=== PATIENT | male | born 1945 | race Caucasian/White ===

== ENCOUNTER → 2017-01-07 | Outpatient (CLI) | payer MEDICARE, OTHER ==
[~2017-01-07] MED LIST: AMLO10TA2 PO; AMLO5TAB2 PO; ASPI81TA83 PO; AVAP300T; CARV12.5 PO; COEN100C PO; DARV100T; GABAPOW41; INDAPAMIDE; INVO100T PO; LIPI20TA; LOSA100T37 PO; METF750T PO; METFORMIN HYDROCHLOR; METOPROLOL TARTRATE; OMEGA 3 FISH OIL; POTA20TA2; PRAV1TAB39 PO; TAMS0.4C2 PO; VERELAN; VITA200015 PO; [UNRECOGNIZED DRUG - OTHER]; [UNRECOGNIZED DRUG - OTHER] PO
--- NOTE | 2017-01-07 17:54 | REP ---
LOW DOSE LUNG SCREENING CT: HISTORY: Low dose screening CT of the lungs. COMPARISON: Chest CT 01/06/2010. Only lung windows have been presented for interpretation on this screening low dose CT examination of the chest. In the inferior aspect of the right upper lobe there is a 9 mm sized nodule which is essentially unchanged from the prior exam when the technical differences between the examinations are taken into consideration. Also in the inferior right upper lobe near the fissure to the right middle lobe there is an unchanged 3 mm size nodule. In the medial aspect of the inferior right upper lobe there is a 2 mm size nodule unchanged. In the fissure between the lingula and left upper lobe there is an area of pleural thickening, which measures approximately 7 mm and is unchanged from the prior exam. In the superior lingula, there is a 3 mm sized nodule which is unchanged. There is a 3 mm sized nodule in the left lower lobe which is unchanged. Also in the left lower lobe, lateral basal segment there is a 4 mm sized nodule, unchanged. No new abnormal nodules, masses or opacities have developed. IMPRESSION: Positive CT screening examination of the lungs, however, all nodules have been stable for 7 years and according to the revised [employer] criteria, these nodules are category 2 lesions and annual screening low dose CT examination of the lungs should continue provided the patient's risk factors remain high. Signed by Gerber Loaiza DO 01/08/2017 11:09 A
== END ==
LOC: M RAD 10:59
PROVIDERS: ATTEND Internal Medicine
DX: Z87.891 Personal history of nicotine dependence (principal); R91.8 Other nonspecific abnormal finding of lung field

== ENCOUNTER → 2018-02-11 | Outpatient (REF) | payer MEDICARE, OTHER | LOC: M LAB REF 10:40 | DX: Z01.89 Encounter for other specified special examinations (principal) | CPT/HCPCS: 86803 ==

== ENCOUNTER → 2020-05-01 | Outpatient (CLI) | payer MEDICARE, OTHER ==
[~2020-05-01] MED LIST changes: -AMLO10TA2 PO; +AMLO1TAB24 PO; +AMLO1TAB25 PO; -AMLO5TAB2 PO; -COEN100C PO; +COEN100C4 PO; -LOSA100T37 PO; +LOSA100T5 PO; -METF750T PO; +METF750T36 PO
--- NOTE | 2020-05-05 12:07 | REP ---
CT CHEST WITHOUT CONTRAST: LOW-DOSE SCREENING EXAM HISTORY: Lung cancer screening. COMPARISON: Chest CT studies dated 01/07/2017 and 01/15/2010. CT FINDINGS: There are scattered perifissural and subcentimeter parenchymal noncalcified pulmonary nodules bilaterally. All of these are unchanged from the 01/07/2017 and the more remote prior study. They could be considered benign. No new pulmonary nodule is appreciated. There is some vascular calcification. The study is otherwise unremarkable. IMPRESSION: Lung-RADS Category 1 findings. Repeat screening exam suggested in one year. MTDD
== END ==
LOC: M RAD 07:26
PROVIDERS: ATTEND Internal Medicine
DX: Z12.2 Encounter for screening for malignant neoplasm of respiratory organs (principal); Z87.891 Personal history of nicotine dependence

== ENCOUNTER → 2020-09-16 | Outpatient (CLI) | payer SELFPAY | LOC: M LABSMTC 08:37 | PROVIDERS: ATTEND Pediatrics | DX: Z20.822 Contact with and (suspected) exposure to COVID-19 (principal) ==

== ENCOUNTER → 2021-10-24 | Outpatient (CLI) | payer MEDICARE, OTHER ==
[~2021-10-24] MED LIST changes: +AMLO1TAB25; +EZET10TA21; +FARX1TAB5; +FISH1000 PO; +HYDR12CA; +LOSA100T45; +ONGL1TAB9; +PRAV40TA2; +TAMS1CAP17
== END ==
LOC: M LABSMTC 09:31
PROVIDERS: ATTEND Anesthesiology
DX: Z01.812 Encounter for preprocedural laboratory examination (principal); Z11.52 Encounter for screening for COVID-19

== ENCOUNTER 2021-10-29 12:18 | Day surgery (SDC) | payer MEDICARE, OTHER ==
[~2021-10-29] VITALS: Ht 177.8 cm; Wt 126.5 kg
[~2021-10-29 12:18] MED LIST changes: +NS 1,000 ML IV ONE
[2021-10-29] MEDS ORDERED: LIDOCAINE 2% 100MG/5ML SDV (FOR ANES.) As Ordered ONE (12:50)
[2021-10-29] MEDS ORDERED: propofoL 200 MG/20 ML VIAL As Ordered ONE ×2 (12:50→13:44)
[2021-10-29 14:35] VITALS: BP 135/71
== END 2021-10-29 14:49 | disposition home or self-care (01) ==
LOC: M OPP 12:18
PROVIDERS: ATTEND Internal Medicine Gastroenterology
DX: Z12.11 Encounter for screening for malignant neoplasm of colon (principal); Z86.010 Personal history of colon polyps; C18.9 Malignant neoplasm of colon, unspecified; D12.0 Benign neoplasm of cecum; K57.30 Diverticulosis of large intestine without perforation or abscess without bleeding; K64.8 Other hemorrhoids; Z79.82 Long term (current) use of aspirin; Z79.84 Long term (current) use of oral hypoglycemic drugs; Z79.899 Other long term (current) drug therapy; Z88.5 Allergy status to narcotic agent; Z95.0 Presence of cardiac pacemaker; Z87.891 Personal history of nicotine dependence

== ENCOUNTER → 2021-11-19 | Outpatient (CLI) | payer MEDICARE, OTHER ==
[~2021-11-19] MED LIST changes: -NS 1,000 ML IV ONE
[2021-11-19 11:37] LABS: HEMATOCRIT 46.5 % (42.0-52.0); HEMOGLOBIN 15.7 g/dl (13.5-17.5); MEAN CORPUSCULAR HEMOGLOBIN 29.1 pg (27.0-33.0); MEAN CORPUSCULAR HGB CONC 33.8 g/dl (32.0-36.5); MEAN CORPUSCULAR VOLUME 86.1 fl (80.0-96.0); PLATELET COUNT, AUTOMATED 189 10^3/uL (150-450); WHITE BLOOD COUNT 8.2 10^3/uL (4.0-10.0)
[2021-11-19 11:48] LABS: INR 1.05; PROTHROMBIN TIME 14.1 SECONDS (12.7-14.5)
[2021-11-19 12:05] LABS: ALBUMIN 3.8 GM/DL (3.2-5.2); ALT/SGPT 42 U/L (12-78); BILIRUBIN,TOTAL 1.1 MG/DL (0.2-1.0); BLOOD UREA NITROGEN 15 MG/DL (7-18); CALCIUM LEVEL 9.3 MG/DL (8.8-10.2); CARBON DIOXIDE LEVEL 31 MEQ/L (21-32); CHLORIDE LEVEL 105 MEQ/L (98-107); CREATININE FOR GFR 1.08 MG/DL (0.70-1.30); GLOMERULAR FILTRATION RATE > 60.0 (>42); GLUCOSE, FASTING 130 MG/DL (70-100); SODIUM LEVEL 140 MEQ/L (136-145); TOTAL PROTEIN 7.2 GM/DL (6.4-8.2)
== END ==
LOC: M LAB 10:45
DX: C18.9 Malignant neoplasm of colon, unspecified (principal)

== ENCOUNTER → 2021-11-23 | Outpatient (CLI) | payer MEDICARE, OTHER ==
[~2021-11-23] MED LIST changes: +GASTROGRAFIN SOLUTION 30ML (Q9963) As Ordered ONE; +ISOVUE-370 76% 100ML VIAL As Ordered ONE
== END ==
LOC: M RAD 11:29
DX: C18.9 Malignant neoplasm of colon, unspecified (principal)
CPT/HCPCS: 71260; 74177; Q9963; Q9967

== ENCOUNTER → 2022-04-08 | Outpatient (CLI) | payer MEDICARE, OTHER ==
[~2022-04-08] MED LIST changes: -GASTROGRAFIN SOLUTION 30ML (Q9963) As Ordered ONE; -ISOVUE-370 76% 100ML VIAL As Ordered ONE
== END ==
LOC: M RAD 12:55
PROVIDERS: ATTEND Internal Medicine
DX: M79.605 Pain in left leg (principal)

== ENCOUNTER 2022-10-01 07:53 | Emergency (ER) | payer MEDICARE, OTHER ==
[~2022-10-01] VITALS: Ht 177.8 cm; Wt 105.4 kg
[2022-10-01] MEDS ORDERED: SEMA1PEN2 SQ (08:13)
[2022-10-01] MEDS ORDERED: NS 1,000 ML IV ONE ×2 (08:50→12:20)
[2022-10-01 09:32] LABS: BASO % 0.3 % (0.0-1.0); EOS # 0.1 10^3/uL (0.0-0.5); EOS % 1.5 % (0.0-3.0); HEMATOCRIT 47.4 % (42.0-52.0); HEMOGLOBIN 16.2 g/dl (13.5-17.5); LYMPH # 0.9 10^3/uL (1.5-5.0); LYMPH % 9.4 % (24.0-44.0); MEAN CORPUSCULAR HEMOGLOBIN 29.3 pg (27.0-33.0); MEAN CORPUSCULAR HGB CONC 34.2 g/dl (32.0-36.5); MEAN CORPUSCULAR VOLUME 85.9 fl (80.0-96.0); MONO # 0.7 10^3/uL (0.0-0.8); MONO % 7.5 % (2.0-8.0); NEUTROPHILS # 7.6 10^3/uL (1.5-8.5); NEUTROPHILS % 80.9 % (36.0-66.0); PLATELET COUNT, AUTOMATED 184 10^3/uL (150-450); RED BLOOD COUNT 5.52 10^6/uL (4.30-6.10); WHITE BLOOD COUNT 9.4 10^3/uL (4.0-10.0)
[2022-10-01 10:02] LABS: ALBUMIN 3.9 G/DL (3.2-5.2); ALKALINE PHOSPHATASE 68 U/L (46-116); ALT/SGPT 24 U/L (7.0-40); AST/SGOT 26 U/L (<34); BILIRUBIN,DIRECT 0.6 MG/DL (<0.4); BILIRUBIN,TOTAL 1.6 MG/DL (0.3-1.2); BLOOD UREA NITROGEN 18 MG/DL (9-23); CALCIUM LEVEL 9.5 MG/DL (8.3-10.6); CARBON DIOXIDE LEVEL 23 MMOL/L (20-31); CHLORIDE LEVEL 105 MMOL/L (98-107); CREATININE FOR GFR 1.01 MG/DL (0.70-1.30); GLOMERULAR FILTRATION RATE > 60.0 (>42); GLUCOSE, FASTING 112 MG/DL (74-106); POTASSIUM SERUM 3.8 MMOL/L (3.5-5.1); SODIUM LEVEL 138 MMOL/L (136-145); TOTAL PROTEIN 6.8 G/DL (5.7-8.2)
[2022-10-01 10:04] LABS: THYROID STIMULATING HORMONE 3.171 uIU/ML (0.55-4.78)
[2022-10-01 13:46] VITALS: BP 145/75
== END 2022-10-01 14:15 | disposition home or self-care (01) ==
LOC: M ED 07:53
DX: R55 Syncope and collapse (principal); R50.9 Fever, unspecified; R94.31 Abnormal electrocardiogram [ECG] [EKG]; E11.9 Type 2 diabetes mellitus without complications; I10 Essential (primary) hypertension; Z79.82 Long term (current) use of aspirin; Z87.891 Personal history of nicotine dependence; Z88.8 Allergy status to other drugs, medicaments and biological substances; Z79.84 Long term (current) use of oral hypoglycemic drugs

== ENCOUNTER 2023-07-09 12:55 | Day surgery (SDC) | payer MEDICARE, OTHER ==
[~2023-07-09] VITALS: Ht 177.8 cm; Wt 109.7 kg
[~2023-07-09 12:55] MED LIST changes: -AMLO1TAB25; +BAYE81TA7 PO; +D32000CA PO; -EZET10TA21; +EZET10TA21 PO; -FARX1TAB5; +FARX1TAB5 PO; +HYDR-3713 PO; -HYDR12CA; +HYDR12CA PO; -LOSA100T45; +LOSA100T46 PO; +META0.52 PO; +META28.32 PO; +NS 1,000 ML IV ONE; +ONGL1TAB9 PO; -PRAV40TA2; +PRAV40TA2 PO; +SEMA1PEN2 SQ; -TAMS1CAP17; +TAMS1CAP17 PO; +VITA500075 PO; +VITMTA PO
[2023-07-09] MEDS ORDERED: propofoL 200 MG/20 ML VIAL As Ordered ONE (14:49)
[2023-07-09] MEDS ORDERED: LIDOCAINE 2% 100MG/5ML SDV (FOR ANES.) As Ordered ONE (14:49)
[2023-07-09 16:19] VITALS: TEMP 98.2
[2023-07-09 16:35] VITALS: BP 146/75; O2SAT 97
== END 2023-07-09 16:36 | disposition home or self-care (01) ==
LOC: M OPP 12:55
PROVIDERS: ATTEND Internal Medicine Gastroenterology
DX: Z12.11 Encounter for screening for malignant neoplasm of colon (principal); D12.0 Benign neoplasm of cecum; K64.0 First degree hemorrhoids; K57.30 Diverticulosis of large intestine without perforation or abscess without bleeding; Z86.010 Personal history of colon polyps; Z98.0 Intestinal bypass and anastomosis status; E11.9 Type 2 diabetes mellitus without complications; I10 Essential (primary) hypertension; E78.00 Pure hypercholesterolemia, unspecified; I25.2 Old myocardial infarction; Z95.5 Presence of coronary angioplasty implant and graft; G47.30 Sleep apnea, unspecified; Z79.899 Other long term (current) drug therapy; Z79.84 Long term (current) use of oral hypoglycemic drugs; Z79.82 Long term (current) use of aspirin; Z88.4 Allergy status to anesthetic agent

== ENCOUNTER → 2023-09-25 | Outpatient (CLI) | payer MEDICARE, OTHER ==
[~2023-09-25] MED LIST changes: -NS 1,000 ML IV ONE
== END ==
LOC: M WUC 10:47
PROVIDERS: ATTEND Nurse Practitioner Family
DX: R07.81 Pleurodynia (principal); R07.89 Other chest pain

== ENCOUNTER 2024-08-18 06:45 | Day surgery (SDC) | payer MEDICARE, OTHER ==
[~2024-08-18] VITALS: Ht 177.8 cm; Wt 119.7 kg
[~2024-08-18 06:45] MED LIST changes: +OMEG10002 PO
[2024-08-18] MEDS ORDERED: propofoL 200 MG/20 ML VIAL As Ordered ONE (07:35)
[2024-08-18] MEDS ORDERED: LIDOCAINE 2% 100MG/5ML SDV (FOR ANES.) As Ordered ONE (07:35)
[2024-08-18 08:12] VITALS: TEMP 97.9
[2024-08-18 08:26] VITALS: BP 120/71; O2SAT 96
== END 2024-08-18 08:30 | disposition home or self-care (01) ==
LOC: M OPP 06:45
PROVIDERS: ATTEND Internal Medicine Gastroenterology
DX: Z85.038 Personal history of other malignant neoplasm of large intestine (principal); K64.0 First degree hemorrhoids; K57.30 Diverticulosis of large intestine without perforation or abscess without bleeding; I10 Essential (primary) hypertension; E11.9 Type 2 diabetes mellitus without complications; E78.5 Hyperlipidemia, unspecified; I25.2 Old myocardial infarction; G47.33 Obstructive sleep apnea (adult) (pediatric); Z88.4 Allergy status to anesthetic agent; Z79.84 Long term (current) use of oral hypoglycemic drugs; Z79.899 Other long term (current) drug therapy; Z87.891 Personal history of nicotine dependence

== ENCOUNTER → 2024-08-24 | Outpatient (CLI) | payer MEDICARE, OTHER | LOC: M WUC 14:15 | PROVIDERS: ATTEND Internal Medicine | DX: R07.1 Chest pain on breathing (principal) ==

== ENCOUNTER → 2024-10-01 | Outpatient (REF) | payer MEDICARE, OTHER ==
[2024-10-01 14:53] LABS: CHOLESTEROL RISK RATIO 3.18 (<5); HDL CHOLESTEROL 62.8 MG/DL (>40); LDL CHOLESTEROL 118.2 MG/DL (<100); NON-HDL-C 137.2 MG/DL
== END ==
LOC: M LABWUC 13:43
PROVIDERS: ATTEND Nurse Practitioner Acute Care
DX: E78.5 Hyperlipidemia, unspecified (principal)

== ENCOUNTER → 2024-11-30 | Outpatient (CLI) | payer MEDICARE, OTHER | LOC: M WUC 13:24 | PROVIDERS: ATTEND Internal Medicine | DX: M54.2 Cervicalgia (principal) ==

== ENCOUNTER 2025-07-11 08:44 | Day surgery (SDC) | payer MEDICARE, OTHER ==
[~2025-07-11] VITALS: Ht 177.8 cm; Wt 117.1 kg
[~2025-07-11 08:44] MED LIST changes: +CARV25TA PO; +CLOP75TA2 PO; -EZET10TA21 PO; +EZET10TA57 PO; +HYDR12.510 PO; -HYDR12CA PO; +LIDOCAINE 2% 100 MG/5 ML SDV (FOR ANES.) As Ordered ONE; +MULTTAB61 PO; -PRAV40TA2 PO; +PRAV40TA85 PO; +PRES1CHW PO; +REPA140I2
[2025-07-11 09:59] VITALS: TEMP 98.5
[2025-07-11 10:20] VITALS: BP 101/68; O2SAT 95
== END 2025-07-11 10:28 | disposition home or self-care (01) ==
LOC: M OPP 08:44
PROVIDERS: ATTEND Internal Medicine Gastroenterology
DX: D12.2 Benign neoplasm of ascending colon (principal); K57.30 Diverticulosis of large intestine without perforation or abscess without bleeding; K64.0 First degree hemorrhoids; Z98.0 Intestinal bypass and anastomosis status; Z85.038 Personal history of other malignant neoplasm of large intestine; I48.91 Unspecified atrial fibrillation; Z95.5 Presence of coronary angioplasty implant and graft; Z86.73 Personal history of transient ischemic attack (TIA), and cerebral infarction without residual deficits; G47.30 Sleep apnea, unspecified; Z88.8 Allergy status to other drugs, medicaments and biological substances; Z88.4 Allergy status to anesthetic agent; Z79.82 Long term (current) use of aspirin; Z79.899 Other long term (current) drug therapy; Z79.84 Long term (current) use of oral hypoglycemic drugs; Z79.85 Long-term (current) use of injectable non-insulin antidiabetic drugs
CPT/HCPCS: 45385; 88305; J3010